=== PATIENT | male | born 1975 | race Caucasian/White ===

== ENCOUNTER 2021-10-14 19:01 | Inpatient (IN) | payer OTHER, SELFPAY ==
[2021-10-14] MEDS ORDERED: Morphine 4 MG/ML VIAL ONE (19:28)
[2021-10-14] MEDS ORDERED: Ondansetron ODT 4 MG TAB PO PRN (19:43)
[2021-10-14] MEDS ORDERED: Ondansetron PF 4 MG/2 ML Vial IVP PRN (19:43)
[2021-10-14] MEDS ORDERED: Morphine 4 MG/ML VIAL SLOW IVP PRN (19:43)
[2021-10-14] MEDS ORDERED: Morphine 2 MG/ML VIAL SLOW IVP PRN (19:43)
[2021-10-14] MEDS ORDERED: hydrALAZINE 20 MG/ML VIAL SLOW IVP PRN (19:43)
[2021-10-14] MEDS ORDERED: Dextrose 5% in Water 1,000 ML IV PRN (19:43)
[2021-10-14] MEDS ORDERED: Dextrose 50% Abboject 50 ML SYRINGE SLOW IVP PRN (19:43)
[2021-10-14] MEDS ORDERED: Famotidine/PF 20 mg/2ml Vial SLOW IVP SCH (21:00)
[2021-10-14] MEDS ORDERED: traMADol HCl 50 MG TAB PO SCH (21:00)
[2021-10-14] MEDS: Acetaminophen 500 MG TAB PO SCH (21:35)
[2021-10-14] MEDS: Famotidine 20 MG TAB PO SCH (21:36)
[2021-10-14] MEDS: Senokot S 8.6-50 MG TAB PO SCH (21:36)
[2021-10-14] MEDS: Gabapentin 300 MG CAP PO SCH (21:36)
[2021-10-14 22:09] VITALS: BMI 26.5
[2021-10-14] MEDS: HYDROmorphone 10 MG in Sodium Chloride 0.9% 95 ML IVPB PRN (22:58)
[2021-10-14] MEDS: Sodium Chloride 0.9% 1,000 ML IV SCH (22:59)
[2021-10-15 00:34] LABS: SARS-CoV-2 NAA Rapid Test Not Detected (NotDetected)
[2021-10-15] MEDS: Acetaminophen 500 MG TAB PO SCH ×4 (03:09→20:42)
[2021-10-15 05:50] LABS: #Eosinphils 0.1 thou/uL (0.0-0.7); #Monocytes 1.1 thou/uL (0.11-0.59); #Neutrophils 7.7 thou/uL (1.40-6.50); %Basophils 0.5 % (0.0-1.0); %Eosinophils 0.8 % (0.0-10.0); %Lymphocytes 17.9 % (21.0-51.0); %Monocytes 9.7 % (0.0-10.0); %Neutrophils 71.1 % (42.0-75.0); Hemoglobin 13.7 g/dL (14.0-18.0); Mean Corpuscular HGB CONC 33.5 g/dL (32.0-36.0); Mean Corpuscular Hemoglobin 32.4 pg (27.0-31.0); Mean Corpuscular Volume 96.5 fL (78.0-98.0); Mean Platelet Volume 7.7 fL (7.4-10.4); Platelet Count 176 thou/uL (130-400); Red Blood Cell (RBC) Count 4.25 mill/uL (4.70-6.10); White Blood Cell (WBC) Count 10.9 thou/uL (4.8-10.8)
[2021-10-15 06:12] LABS: Phosphorus 2.9 mg/dL (2.3-4.7)
[2021-10-15 06:21] LABS: Anion Gap 12 mmol/L (10-20); BUN (Urea Nitrogen) 15 mg/dL (8.9-20.6); Calc. Creatinine Clearance 117 mL/min (70-130); Calcium 8.4 mg/dL (7.8-10.44); Carbon Dioxide 23 mmol/L (22-29); Chloride 104 mmol/L (98-107); Glucose 106 mg/dL (70-105); Potassium 3.7 mmol/L (3.5-5.1); Sodium 135 mmol/L (136-145)
[2021-10-15] MEDS: Sodium Chloride 0.9% 1,000 ML IV SCH (06:33)
[2021-10-15] MEDS ORDERED: ceFAZolin 2 GM/Dextrose 50 ML 2 GM in Premix Bag 1 BAG IVPB SCH (08:00)
[2021-10-15] MEDS ORDERED: CEFAZOLIN 2 GM in Sodium Chloride 0.9% 100 ML IVPB SCH (08:00)
[2021-10-15] MEDS: Gabapentin 300 MG CAP PO SCH ×3 (09:35→20:41)
[2021-10-15] MEDS: Enoxaparin Sodium 40 MG/0.4 ML SYRINGE SC SCH (09:36)
[2021-10-15] MEDS: Polyethylene Glycol 3350 17 GM Packet PO SCH (09:37)
[2021-10-15] MEDS: Senokot S 8.6-50 MG TAB PO SCH ×2 (09:37→20:41)
[2021-10-15] MEDS: Famotidine 20 MG TAB PO SCH ×2 (09:37→20:42)
[2021-10-15] MEDS: Cyclobenzaprine 10 MG TAB PO PRN ×2 (09:39→20:41)
[2021-10-15] MEDS: HYDROmorphone 10 MG in Sodium Chloride 0.9% 95 ML IVPB PRN ×2 (09:44→20:42)
[2021-10-16] MEDS: Acetaminophen 500 MG TAB PO SCH ×4 (03:59→21:44)
[2021-10-16] MEDS ORDERED: Midazolam HCl 2 mg/2 ml Vial ONE (06:48)
[2021-10-16] MEDS ORDERED: fentaNYL Citrate/PF 100 MCG/2 ML SYRINGE ONE (06:49)
[2021-10-16] MEDS ORDERED: CEFAZOLIN 2 GM VIAL ONE (07:26)
[2021-10-16] MEDS ORDERED: Sodium Chloride 0.9% 100 ML ONE (07:26)
[2021-10-16] MEDS ORDERED: Dexamethasone 20 MG/5 ML VIAL ONE (07:44)
[2021-10-16] MEDS ORDERED: PROPOFOL 200 MG/20 ML VIAL ONE (07:44)
[2021-10-16] MEDS ORDERED: Ondansetron PF 4 MG/2 ML Vial ONE (07:44)
[2021-10-16] MEDS ORDERED: Ketorolac Tromethamine 30 MG/ML VIAL ONE (07:44)
[2021-10-16] MEDS: Gabapentin 300 MG CAP PO SCH ×3 (08:30→21:43)
[2021-10-16] MEDS: Polyethylene Glycol 3350 17 GM Packet PO SCH (08:30)
[2021-10-16] MEDS: Famotidine 20 MG TAB PO SCH ×2 (08:30→21:43)
[2021-10-16] MEDS: Senokot S 8.6-50 MG TAB PO SCH ×2 (08:30→21:43)
[2021-10-16] MEDS: Enoxaparin Sodium 40 MG/0.4 ML SYRINGE SC SCH (08:30)
[2021-10-16] MEDS ORDERED: Fentanyl 100 MCG/2 ML VIAL ONE (09:17)
[2021-10-16] MEDS: Cyclobenzaprine 10 MG TAB PO PRN (10:43)
[2021-10-16] MEDS: HYDROmorphone 10 MG in Sodium Chloride 0.9% 95 ML IVPB PRN (11:54)
[2021-10-16] MEDS ORDERED: ceFAZolin 2 GM/Dextrose 50 ML 2 GM in Premix Bag 1 BAG IVPB SCH (14:00)
[2021-10-16] MEDS: CEFAZOLIN 2 GM in Sodium Chloride 0.9% 100 ML IVPB SCH ×2 (14:48→21:44)
[2021-10-17] MEDS: Acetaminophen 500 MG TAB PO SCH (03:45)
[2021-10-17 04:38] VITALS: TEMP 98.1
[2021-10-17] MEDS: HYDROmorphone 10 MG in Sodium Chloride 0.9% 95 ML IVPB PRN (05:21)
[2021-10-17 06:13] LABS: #Eosinphils 0.1 thou/uL (0.0-0.7); #Lymphocytes 1.8 thou/uL (1.20-3.40); #Monocytes 0.9 thou/uL (0.11-0.59); #Neutrophils 6.2 thou/uL (1.40-6.50); %Basophils 0.3 % (0.0-1.0); %Eosinophils 0.6 % (0.0-10.0); %Lymphocytes 20.3 % (21.0-51.0); %Monocytes 9.9 % (0.0-10.0); %Neutrophils 68.9 % (42.0-75.0); Mean Corpuscular HGB CONC 32.2 g/dL (32.0-36.0); Mean Corpuscular Hemoglobin 31.7 pg (27.0-31.0); Mean Corpuscular Volume 98.2 fL (78.0-98.0); Mean Platelet Volume 7.9 fL (7.4-10.4); Platelet Count 154 thou/uL (130-400); RBC Distribution Width 11.9 % (11.5-14.5)
[2021-10-17 06:37] LABS: Anion Gap 9 mmol/L (10-20); BUN (Urea Nitrogen) 9 mg/dL (8.9-20.6); Calc. Creatinine Clearance 142 mL/min (70-130); Calcium 8.4 mg/dL (7.8-10.44); Carbon Dioxide 28 mmol/L (22-29); Chloride 103 mmol/L (98-107); Glucose 105 mg/dL (70-105); Magnesium 1.9 mg/dL (1.6-2.6); Sodium 136 mmol/L (136-145)
[2021-10-17] MEDS ORDERED: Acetaminophen/Codeine 30-300mg Tablet PO PRN ×2 (07:25)
[2021-10-17 07:53] VITALS: BP 115/70
[2021-10-17] MEDS: Famotidine 20 MG TAB PO SCH (08:59)
[2021-10-17] MEDS: Senokot S 8.6-50 MG TAB PO SCH (08:59)
[2021-10-17] MEDS: Gabapentin 300 MG CAP PO SCH (08:59)
[2021-10-17] MEDS: Polyethylene Glycol 3350 17 GM Packet PO SCH (08:59)
[2021-10-17] MEDS ORDERED: Acetaminophen 325 MG TAB PO SCH (09:00)
[2021-10-17] MEDS: Enoxaparin Sodium 40 MG/0.4 ML SYRINGE SC SCH (09:00)
[2021-10-17] MEDS ORDERED: Ibuprofen 200 MG TAB PO SCH (14:00)
== END 2021-10-17 12:44 | disposition home or self-care (01) | DRG 504 ==
LOC: ERS 19:01 → SJJU 19:47
PROVIDERS: ADMIT Physician Assistant Medical; ATTEND Surgery
PROC: 0QSM04Z Reposition Left Tarsal with Internal Fixation Device, Open Approach (ICD-10-PCS; principal; 2021-10-16)
PROC: 0QSL04Z Reposition Right Tarsal with Internal Fixation Device, Open Approach (ICD-10-PCS; 2021-10-16)
DX: S92.002A Unspecified fracture of left calcaneus, initial encounter for closed fracture (principal); N17.9 Acute kidney failure, unspecified; S92.001A Unspecified fracture of right calcaneus, initial encounter for closed fracture; Z20.822 Contact with and (suspected) exposure to COVID-19; F17.210 Nicotine dependence, cigarettes, uncomplicated; F12.10 Cannabis abuse, uncomplicated; F41.9 Anxiety disorder, unspecified; F32.A Depression, unspecified; S92.061A Displaced intraarticular fracture of right calcaneus, initial encounter for closed fracture; W13.2XXA Fall from, out of or through roof, initial encounter; S92.331A Displaced fracture of third metatarsal bone, right foot, initial encounter for closed fracture; S92.341A Displaced fracture of fourth metatarsal bone, right foot, initial encounter for closed fracture
CPT/HCPCS: 36415; 76000; 80048; 83735; 84100; 85025; 96374; C1713; J1100; J1170; J1650; J1885; J2250; J2270; J2405; J2704; J3010; J3490; J7050; U0002